=== PATIENT | female | born 1945 | race Caucasian/White ===

== ENCOUNTER 2018-06-10 10:12 | Inpatient (IN) | payer SELFPAY ==
[~2018-06-10] VITALS: Ht 152.4 cm; Wt 65.0 kg
[2018-06-10 10:51] LABS: BASOPHIL % 0.5 % (0-2); PLATELET COUNT 260 x10^3mcL (130-400); RED CELL DISTRIBUTION WIDTH 13.7 % (11.5-14.5)
[2018-06-10 11:15] LABS: CARBON DIOXIDE 24.4 mmol/L (21-32); CHLORIDE SERUM 109 mmol/L (98-107); CREATININE SERUM 2.5 mg/dL (0.6-1.0); GLUCOSE SERUM 84 mg/dL (74-106); POTASSIUM SERUM 5.1 mmol/L (3.5-5.1); SODIUM SERUM 144 mmol/L (136-145)
[2018-06-10 11:19] LABS: ALKALINE PHOSPHATASE 122 U/L (46-116); ALT/SGPT 17 U/L (14-59); AST/SGOT 20 U/L (15-37); BILIRUBIN TOTAL 0.2 mg/dL (0.20-1.00); TOTAL PROTEIN, SERUM 6.7 g/dL (6.4-8.2)
[2018-06-10 11:20] LABS: ALBUMIN 2.8 g/dL (3.4-5.0)
[2018-06-10] MEDS ORDERED: GLUCOTROL10 MG PO (12:19)
[2018-06-10 13:40] VITALS: BP 143/74
[2018-06-10 13:41] VITALS: BP 175/67
[2018-06-10 13:49] VITALS: Ht 152.4 cm; Wt 65.0 kg
[2018-06-10 15:02] LABS: MAGNESIUM 2.3 mg/dL (1.8-2.4)
[2018-06-10 15:03] LABS: CHOLESTEROL/HDL RATIO 6.8
[2018-06-10 16:27] VITALS: BP 139/51
[2018-06-10 17:07] VITALS: BP 138/54
[2018-06-10 22:08] VITALS: BP 121/48
[2018-06-11 05:26] VITALS: BP 119/59
[2018-06-11 06:08] LABS: BASOPHIL % 0.4 % (0-2); PLATELET COUNT 226 x10^3mcL (130-400); RED CELL DISTRIBUTION WIDTH 14.4 % (11.5-14.5)
[2018-06-11 06:43] LABS: CARBON DIOXIDE 22.4 mmol/L (21-32); CHLORIDE SERUM 110 mmol/L (98-107); CREATININE SERUM 2.4 mg/dL (0.6-1.0); GLUCOSE SERUM 119 mg/dL (74-106); MAGNESIUM 2.1 mg/dL (1.8-2.4); PHOSPHOROUS 4.8 mg/dL (2.5-4.9); POTASSIUM SERUM 5.2 mmol/L (3.5-5.1); SODIUM SERUM 143 mmol/L (136-145)
[2018-06-11 07:03] LABS: IRON 36 ug/dL (50-170)
[2018-06-11 07:11] LABS: TOTAL IRON BINDING CAPACITY 207 ug/dL (250-450)
[2018-06-11 10:19] VITALS: BP 119/59
[2018-06-11 14:06] VITALS: BP 154/40
[2018-06-11 17:45] VITALS: BP 134/47
[2018-06-11 18:14] LABS: UA SPECIFIC GRAVITY 1.025 (1.005-1.035); microscopic required? YES; urine erythrocyte TRACE (NEGATIVE)
[2018-06-11 18:27] LABS: CREATININE UR 92.8 mg/dL
[2018-06-11 20:46] VITALS: BP 149/51
[2018-06-12 05:11] VITALS: BP 154/59
[2018-06-12 06:28] LABS: CALCIUM 7.9 mg/dL (8.5-10.1); CARBON DIOXIDE 23.8 mmol/L (21-32); CHLORIDE SERUM 108 mmol/L (98-107); GLUCOSE SERUM 105 mg/dL (74-106); PHOSPHOROUS 4.5 mg/dL (2.5-4.9); POTASSIUM SERUM 5.2 mmol/L (3.5-5.1); SODIUM SERUM 138 mmol/L (136-145)
[2018-06-12 06:48] LABS: BASOPHIL % 0.4 % (0-2); PLATELET COUNT 208 x10^3mcL (130-400); RED CELL DISTRIBUTION WIDTH 14.1 % (11.5-14.5)
[2018-06-12 09:00] VITALS: BP 134/44
[2018-06-12 13:30] VITALS: BP 114/54
[2018-06-12 16:47] VITALS: BP 148/58
[2018-06-12 21:06] VITALS: BP 138/51
[2018-06-13 04:45] VITALS: BP 136/53
[2018-06-13 07:01] LABS: PLATELET COUNT 226 x10^3mcL (130-400); RED CELL DISTRIBUTION WIDTH 13.4 % (11.5-14.5)
[2018-06-13 07:06] LABS: CALCIUM 8.1 mg/dL (8.5-10.1); CARBON DIOXIDE 19.7 mmol/L (21-32); CHLORIDE SERUM 109 mmol/L (98-107); GLUCOSE SERUM 130 mg/dL (74-106); MAGNESIUM 2.2 mg/dL (1.8-2.4); PHOSPHOROUS 8.5 mg/dL (2.5-4.9); POTASSIUM SERUM 4.9 mmol/L (3.5-5.1); SODIUM SERUM 141 mmol/L (136-145)
[2018-06-13 09:00] VITALS: BP 162/57
[2018-06-13 13:14] VITALS: BP 147/45
[2018-06-13 18:00] VITALS: BP 161/52
[2018-06-13 20:37] VITALS: BP 123/93
[2018-06-14 05:59] VITALS: BP 164/65
[2018-06-14 10:01] VITALS: BP 153/51
[2018-06-14 12:44] VITALS: BP 139/45
[2018-06-14 12:57] LABS: BASOPHIL % 0.8 % (0-2); PLATELET COUNT 211 x10^3mcL (130-400); RED CELL DISTRIBUTION WIDTH 13.2 % (11.5-14.5)
[2018-06-14 13:07] LABS: CALCIUM 7.7 mg/dL (8.5-10.1); CARBON DIOXIDE 22.2 mmol/L (21-32); CHLORIDE SERUM 111 mmol/L (98-107); CREATININE SERUM 2.6 mg/dL (0.6-1.0); GLUCOSE SERUM 208 mg/dL (74-106); MAGNESIUM 2.2 mg/dL (1.8-2.4); PHOSPHOROUS 5.8 mg/dL (2.5-4.9); POTASSIUM SERUM 4.6 mmol/L (3.5-5.1); SODIUM SERUM 141 mmol/L (136-145)
[2018-06-14 17:03] VITALS: BP 156/60
[2018-06-14 21:03] VITALS: BP 168/53
[2018-06-14 22:46] VITALS: BP 156/47
== END 2018-06-15 00:07 | disposition home or self-care (01) | DRG 193 ==
LOC: ED 10:12 → DU 11:34
PROVIDERS: Emergency Medicine; Family Medicine; Internal Medicine
DX: J18.9 Pneumonia, unspecified organism (principal); N17.0 Acute kidney failure with tubular necrosis; E43 Unspecified severe protein-calorie malnutrition; N18.4 Chronic kidney disease, stage 4 (severe); I12.9 Hypertensive chronic kidney disease with stage 1 through stage 4 chronic kidney disease, or unspecified chronic kidney disease; E11.22 Type 2 diabetes mellitus with diabetic chronic kidney disease; I16.0 Hypertensive urgency; D63.1 Anemia in chronic kidney disease; E87.70 Fluid overload, unspecified; K21.9 Gastro-esophageal reflux disease without esophagitis; D50.9 Iron deficiency anemia, unspecified; R07.89 Other chest pain
CPT/HCPCS: 82962; J0360; J0456; J0696; J0885-EC; J1815; J2405; J3010; J7030; J7613; Q0092